=== PATIENT | female | born 1970 | race Caucasian/White ===

== ENCOUNTER 2018-03-19 00:24 | Emergency (ER) | END 2018-03-19 03:49 | disposition home or self-care (01) ==

== ENCOUNTER 2018-06-30 11:56 | Emergency (ER) | END 2018-06-30 14:13 | disposition home or self-care (01) ==

== ENCOUNTER 2018-12-22 09:32 | Emergency (ER) | payer OTHER ==
[~2018-12-22] VITALS: Ht 160 cm; Wt 57.0 kg
[~2018-12-22 09:32] MED LIST: ACET-141 PO; ACYC800T5 PO; IBUP-1561 PO; MECL12.574 PO; MULTI PO; NAPR-688 PO; PRED20TA PO; RANI150T35 PO
[2018-12-22 09:48] VITALS: Ht 160 cm; Wt 57.0 kg
[2018-12-22] MEDS ORDERED: ATOR40TA68 PO (11:25)
--- NOTE | 2018-12-22 11:30 | ERD ---
ER Documentation Chief Complaint Chief Complaint RLQ PAIN X 15 DAYS HPI 48-year-old female presents the emergency department complaining of right lower quadrant pain. Patient states that she was in her usual state of health until approximately 2 weeks ago which time she developed a nonspecific discomfort about the right lower quadrant. During that time, she had no worsening of her pain. She reports no anorexia or fever. She reports no vaginal bleeding or discharge. She reports no urinary symptoms or diarrhea. Her pain is currently localized to the right lower quadrant does not radiate. She is been able to eat and drink normally. ROS All systems reviewed and are negative except as per history of present illness. Medications Home Meds Reported Medications Atorvastatin* (Atorvastatin*) 40 Mg Tablet, 40 MG PO QHS, #30 TAB 12/22/18 Discontinued Reported Medications Multivitamins* (Theragran*) 1 Tab Tab, 1 TAB PO DAILY, TAB 03/19/18 Acetaminophen* (Acetaminophen*) 500 MG Extra Strength Tablet, 500 MG PO Q4H PRN for PAIN AND OR ELEVATED TEMP, TAB 03/19/18 Discontinued Scripts Meclizine Hcl* (Antivert*) 12.5 Mg Tab, 12.5 MG PO Q6H PRN for DIZZINESS, #20 TAB Prov:JOSE AVENDAÑO MD 06/30/18 Ibuprofen* (Motrin*) 400 Mg Tab, 400 MG PO Q8, #12 TAB Prov:JOSE AVENDAÑO MD 06/30/18 Prednisone* (Prednisone*) 20 Mg Tab, 40 MG PO DAILY for 5 Days, TAB Prov:JOSE AVENDAÑO MD 06/30/18 Acyclovir* (Zovirax*) 800 Mg Tablet, 800 MG PO 5 TIMES DAILY for 7 Days, TAB Prov:JOSE AVENDAÑO MD 06/30/18 Naproxen* (Naproxen*) 500 Mg Tablet, 500 MG PO BID PRN for PAIN, #20 TAB Prov:DIANA TRAORE DO 03/19/18 Ranitidine Hcl* (Zantac*) 150 Mg Tablet, 150 MG PO BID, #60 TAB Prov:DIANA TRAORE DO 03/19/18 Allergies Allergies: Coded Allergies: No Known Allergy (Unverified , 12/22/18) PMhx/Soc Medical and Surgical Hx: pt denies Surgical Hx History of Surgery: No Anesthesia Reaction: No Hx Neurological Disorder: No Hx Respiratory Disorders: No Hx Cardiac Disorders: Yes (hypercholesterolemia) Hx Psychiatric Problems: No Hx Miscellaneous Medical Probl: No Hx Alcohol Use: No Hx Substance Use: No Hx Tobacco Use: No Smoking Status: Never smoker Physical Exam Vitals Vital Signs Date Temp Pulse Resp B/P (MAP) Pulse Ox O2 O2 Flow FiO2 Time Delivery Rate 12/22/18 97.1 73 18 117/73 99 09:48 (88) Physical Exam GENERAL: The patient is well developed and appropriate for usual state of health in no apparent distress HEENT: Pupils equal, round, and reactive to light. EOMI. There is no scleral icterus. NECK: C-spine is soft and supple, there is no meningismus. There is no cervical lymphadenopathy. LUNGS: Clear to auscultation bilaterally. There are no rales, wheezes or rhonchi. HEART: Regular rate and rhythm, no murmurs, clicks, rubs or gallops. ABDOMEN: Soft, non-tender, non-distended. There are bowel sounds in all four quadrants. No rebound or guarding. EXTREMITIES: There is no peripheral cyanosis or edema. No focal swelling or erythema. NEURO: The patient moves all four extremities with 5/5 strength. Cranial nerves II - XII are intact. Normal gait. Alert and oriented SKIN: There is no apparent rash or petechiae. HEME/LYMPHATIC: There is no evidence of excessive bruising or lymphedema. PSYCHIATRIC: The patient does not appear anxious or depressed. Result Diagram: 12/22/18 1034 12/22/18 1034 Results 24 hrs Laboratory Tests Test 12/22/18 10:34 12/22/18 10:42 White Blood Count 8.4 10^3/ul Red Blood Count . 10^6/ul Hemoglobin 12.7 g/dl Hematocrit 39.6 % Mean Corpuscular Volume 94.5 fl Mean Corpuscular Hemoglobin 30.3 pg Mean Corpuscular Hemoglobin Concent 32.1 g/dl Red Cell Distribution Width 13.5 % Platelet Count 211 10^3/UL Mean Platelet Volume 11.5 fl Immature Granulocytes % 0.400 % Neutrophils % 66.9 % Lymphocytes % 24.3 % Monocytes % 7.7 % Eosinophils % 0.2 % Basophils % 0.5 % Nucleated Red Blood Cells % 0.0 /100WBC Immature Granulocytes # 0.030 10^3/ul Neutrophils # 5.6 10^3/ul Lymphocytes # 2.0 10^3/ul Monocytes # 0.7 10^3/ul Eosinophils # 0.0 10^3/ul Basophils # 0.0 10^3/ul Nucleated Red Blood Cells # 0.0 10^3/ul Urine Color YELLOW Urine Clarity CLEAR Urine pH 6.0 Urine Specific [place] 1.008 Urine Ketones NEGATIVE mg/dL Urine Nitrite NEGATIVE mg/dL Urine Bilirubin NEGATIVE mg/dL Urine Urobilinogen NEGATIVE mg/dL Urine Leukocyte Esterase NEGATIVE Parvin/ul Urine Hemoglobin NEGATIVE mg/dL Urine Glucose NEGATIVE mg/dL Urine Total Protein NEGATIVE mg/dl Sodium Level 140 mmol/L Potassium Level 4.4 mmol/L Chloride Level 107 mmol/L Carbon Dioxide Level 26 mmol/L Anion Gap 7 Blood Urea Nitrogen 9 mg/dl Creatinine 0.70 mg/dl Est Glomerular Filtrat Rate mL/min > 60 mL/min Glucose Level 92 mg/dl Calcium Level 9.4 mg/dl Total Bilirubin 0.5 mg/dl Direct Bilirubin 0.00 mg/dl Indirect Bilirubin 0.5 mg/dl Aspartate Amino Transf (AST/SGOT) 20 IU/L Alanine Aminotransferase (ALT/SGPT) 6 IU/L Alkaline Phosphatase 59 IU/L Total Protein 7.7 g/dl Albumin 4.4 g/dl Globulin 3.30 g/dl Albumin/Globulin Ratio 1.33 Lipase 101 U/L POC Beta HCG, Qualitative NEGATIVE Procedures/MDM Patient was taken to a room, seen and evaluated. Comfort measures were ini tiated. Diagnostic tests were ordered and reviewed. 3 LEAD RHYTHM STRIP: Normal sinus rhythm without ectopy RADIOLOGY: Reviewed with the radiologist REEVALUATION: 1120: Diagnostic tests were appreciated. So examinations of the abdomen remained benign including no evidence of appendicitis. MEDICAL DECISION MAKING: Patient presents with abdominal pain of uncertain etiology. Differential diagnosis considered includes appendicitis, diverticulitis, cholecystitis and other intra-abdominal medical and surgical concerns. I have reviewed the patients lab studies and imaging as well as multiple examinations of the abdomen. At this time, clinical exam as well as diagnostic tests show no evidence of high-risk intra-abdominal concerns. Specifically, she shows no clinical evidence of appendicitis, cholecystitis or other high-risk issues. After supportive management, she is pain-free and seems appropriate for outpatient follow-up with her doctor. Departure Diagnosis: Primary Impression: Abdominal pain Condition: Stable Patient Instructions: Abdominal Pain Additional Instructions: Consulte a peterson mdico para el seguimiento segn lo discutido. Lleve ellis copia de los resultados de peterson prueba, si corresponde, a esta visita de seguimiento. Consulte a peterson mdico o regrese aqu si [place] sntomas no mejoran keron se esperaba. En cualquier momento, regrese al departamento de emergencias por cualquier cambio o empeoramiento en cinthia sntomas. ELDON WHITE Dec 22, 2018 11:30
[2018-12-22 11:37] VITALS: BP 121/77; PULSE 79; RESP 18
== END 2018-12-22 11:43 | disposition home or self-care (01) ==
LOC: E/R 09:32
DX: R10.31 Right lower quadrant pain (principal)
CPT/HCPCS: 36415; 74176; 80053; 81003; 81025; 83690; 85025